=== PATIENT | female | born 1975 | race Caucasian/White ===

== ENCOUNTER 2018-03-15 09:04 | Day surgery (SDC) | payer BC ==
[~2018-03-15] VITALS: Ht 165.1 cm; Wt 117.9 kg
[~2018-03-15 09:04] MED LIST: FARXIGA10 MG PO; GLUCOPHAGE1000 MG PO; PERCOCET 5/31 TABLET PO; PRILOSEC20 MG PO; VICTOZA 2-0.6 MG/0.1 SC; ZANAFLEX2 M1 PO
== END 2018-03-15 10:50 | disposition home or self-care (01) ==
LOC: PAIN 09:04 → SDC 09:45 → PAIN 10:50
PROVIDERS: Anesthesiology Pain Medicine
DX: M47.812 Spondylosis without myelopathy or radiculopathy, cervical region (principal); G89.29 Other chronic pain; M50.90 Cervical disc disorder, unspecified, unspecified cervical region; M48.02 Spinal stenosis, cervical region; M41.9 Scoliosis, unspecified; G44.209 Tension-type headache, unspecified, not intractable; M79.1 Myalgia; Z87.891 Personal history of nicotine dependence; E78.5 Hyperlipidemia, unspecified; E66.9 Obesity, unspecified; K76.0 Fatty (change of) liver, not elsewhere classified; E11.65 Type 2 diabetes mellitus with hyperglycemia; Z68.41 Body mass index [BMI] 40.0-44.9, adult; Z79.84 Long term (current) use of oral hypoglycemic drugs
CPT/HCPCS: 82948; J1030; J2250; S0020

== ENCOUNTER 2018-03-22 08:24 | Day surgery (SDC) | payer BC ==
[~2018-03-22] VITALS: Ht 165.1 cm; Wt 117.9 kg
== END 2018-03-22 11:13 | disposition home or self-care (01) ==
LOC: PAIN 08:24 → SDC 09:00 → PAIN 11:13
PROVIDERS: Anesthesiology Pain Medicine
DX: M47.812 Spondylosis without myelopathy or radiculopathy, cervical region (principal); M79.1 Myalgia; M48.02 Spinal stenosis, cervical region; F41.8 Other specified anxiety disorders; E11.9 Type 2 diabetes mellitus without complications; Z87.891 Personal history of nicotine dependence; K21.9 Gastro-esophageal reflux disease without esophagitis; Z79.84 Long term (current) use of oral hypoglycemic drugs; R03.0 Elevated blood-pressure reading, without diagnosis of hypertension
CPT/HCPCS: 82948; J1030; J2250; S0020

== ENCOUNTER 2018-05-17 10:04 | Day surgery (SDC) | payer BC ==
[~2018-05-17 10:04] MED LIST changes: +OMEPRAZOLE40 M1 PO; -PRILOSEC20 MG PO; -ZANAFLEX2 M1 PO; +ZANAFLEX4 M1 PO
== END 2018-05-17 11:30 | disposition home or self-care (01) ==
LOC: PAIN 10:04 → SDC 10:45 → PAIN 10:45
PROVIDERS: Anesthesiology Pain Medicine
DX: M47.812 Spondylosis without myelopathy or radiculopathy, cervical region (principal); G89.29 Other chronic pain; M50.90 Cervical disc disorder, unspecified, unspecified cervical region; M79.1 Myalgia; M48.02 Spinal stenosis, cervical region; M41.9 Scoliosis, unspecified; Z87.891 Personal history of nicotine dependence
CPT/HCPCS: 82948; J1030; J1885; J2250; S0020

== ENCOUNTER 2018-05-26 06:57 | Day surgery (SDC) | payer BC ==
[~2018-05-26] VITALS: Ht 162.6 cm; Wt 110.7 kg
[~2018-05-26 06:57] MED LIST changes: -PERCOCET 5/31 TABLET PO; +PERCOCET 7.51 TABLET PO
== END 2018-05-26 08:45 | disposition home or self-care (01) ==
LOC: PAIN 06:57
PROVIDERS: Anesthesiology Pain Medicine
DX: M47.812 Spondylosis without myelopathy or radiculopathy, cervical region (principal); G89.29 Other chronic pain; M50.90 Cervical disc disorder, unspecified, unspecified cervical region; M48.02 Spinal stenosis, cervical region; M79.1 Myalgia; M41.9 Scoliosis, unspecified; Z87.891 Personal history of nicotine dependence; E66.9 Obesity, unspecified; Z68.41 Body mass index [BMI] 40.0-44.9, adult
CPT/HCPCS: 82948; 93005; J1030; J1885; J2250; S0020